=== PATIENT | male | born 1955 | race Caucasian/White ===

== ENCOUNTER → 2022-07-02 | Outpatient (CLI) | payer OTHER | END | disposition home or self-care (01) | LOC: CT 13:56 | PROVIDERS: ATTEND Specialist | DX: J34.2 Deviated nasal septum (principal); J32.9 Chronic sinusitis, unspecified ==

== ENCOUNTER → 2022-08-05 | Day surgery (SDC) | payer OTHER ==
[~2022-08-05] VITALS: Ht 185.4 cm; Wt 87.5 kg
[~2022-08-05] MED LIST: ADDERALL 20 MG20 MG PO; OFLOXACIN OTIC5 ML OT
[2022-08-05 07:57] VITALS: BP 161/92
[2022-08-05 08:46] VITALS: BP 137/74
[2022-08-05 08:59] VITALS: BP 155/98
[2022-08-05 09:13] VITALS: BP 178/98
== END | disposition home or self-care (01) ==
LOC: SDC 07-31 10:15
PROVIDERS: ATTEND Specialist
DX: H65.493 Other chronic nonsuppurative otitis media, bilateral (principal); H69.83 Other specified disorders of Eustachian tube, bilateral; F90.9 Attention-deficit hyperactivity disorder, unspecified type; J34.2 Deviated nasal septum; J30.9 Allergic rhinitis, unspecified; J30.0 Vasomotor rhinitis; F17.210 Nicotine dependence, cigarettes, uncomplicated